=== PATIENT | female | born 1985 | race Caucasian/White ===

== ENCOUNTER 2025-06-05 09:12 | Outpatient (REF) | payer OTHER, SELFPAY ==
--- NOTE | ~2025-06-05 | XR_ITS ---
EXAMINATION: XR CERVICAL SPINE CLINICAL INFORMATION: Z98.1 - Arthrodesis status COMPARISON: None available. TECHNIQUE: 4 views of the cervical spine were obtained, including flexion and extension lateral views. FINDINGS: No significant scoliosis. There is a mild reversal of the normal lordosis centered at C5. The craniocervical junction and C1-2 articulation are intact and aligned with mild/moderate degenerative arthritis in the anterior joint. There is no fracture, compression deformity, or suspicious bone lesion. There has been prior anterior fusion and discectomy of C5-6 with disc prosthesis and oblique endplate screws. The hardware appears well seated without definite periprosthetic fracture or lucency. There is a 2 mm retrolisthesis of C5 on C6 on the neutral projection. This remains unchanged in flexion and extension without evidence of new or developing subluxation at any other level. There is mild degenerative disc change at C6-C7. The remainder of the disc spaces appear preserved. Normal facet alignment and appearance bilaterally. There is no prevertebral soft tissue abnormality. There are nonspecific submandibular calcifications bilaterally. Imaged lung apices are clear. XR/XR cervical spine 4V IMPRESSION: 1. Anterior fusion and discectomy at C5-6 without hardware complication identified. 2. There is no evidence of instability on flexion and extension views. 3. There is mild disc degeneration at C6-C7. Electronically signed by: Lionel aGmez MD 06/05/2025 10:05 AM [facility]
== END 2025-06-05 09:13 | disposition home or self-care (01) ==
LOC: HO.HOSX 09:12
PROVIDERS: Visit Provider Neurological Surgery
DX: S12.400D Unspecified displaced fracture of fifth cervical vertebra, subsequent encounter for fracture with routine healing (principal); Z98.1 Arthrodesis status; X58.XXXD Exposure to other specified factors, subsequent encounter
CPT/HCPCS: 72050

== ENCOUNTER 2025-06-05 09:12 | Outpatient (AMB) | payer OTHER, SELFPAY ==
[2025-06-05 09:27] VITALS: BMI 23.3
--- NOTE | 2025-06-05 09:27 | HO.SPINEOV ---
Vital Signs 06/05/25 09:27 Height 5 ft 5 in Weight 140 lb BMI 23.3 Intake Visit Reasons: cervical radiculopathy Intake Note: Ms. Davis is here today c/o right sided neck pain. 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 Allergies amoxicillin Allergy (Mild, Verified 06/05/25 09:28) Rash azithromycin Allergy (Mild, Verified 06/05/25 09:28) Rash Penicillins Allergy (Mild, Verified 06/05/25 09:28) Rash Sulfa (Sulfonamide Antibiotics) Allergy (Mild, Verified 06/05/25 09:28) Rash Physical Exam Vital Signs: BMI result Body Mass Index 23.3 Assessment & Plan Assessment & Plan (1) Status post cervical spinal fusion: Code(s): Z98.1 - Arthrodesis status Category: Surgical (2) Cervical pseudoarthrosis: Code(s): S12.9XXA - Fracture of neck, unspecified, initial encounter Category: Medical Plan Dear colleague Thank you for referring Mandi Davis to the office today with a chief complaint of chronic neck pain. HPI: This 39-year-old female who underwent an anterior cervical decompression and fusion C5-6 for neck pain. She states that the surgery gave her significant improvement for several months and then her symptoms returned worse than ever. In fact, now she is having debilitating neck pain that is constant. There is intermittent electric shocks down her right arm. Still works as a chart nerves. Her primary care office ordered a new MRI of the cervical spine, which was reviewed by her original surgeon Dr. Syed and she was told that there was nothing to be done. The following conservative treatment options were tried without success antiinflammatories, tylenol, physician guided home exercise plan, cortisone shots PMH: Hypertension, hyperlipidemia, depression, anxiety, chronic pain, lumbar diskectomy, lumbar fusion and cervical fusion Medications: Wellbutrin, Celexa, Adderall, amlodipine, OxyContin, losartan, colododine, trazodone, Zepbound, tizanidine Allergies: Sulfa drugs, amoxicillin, penicillin, azithromycin Social history: Nonsmoker. Physical Exam: Height 5'5 weight 140 lb. Patient is in distress due to pain. She is constantly moving her neck trying to get relief. Neurological exam is intact for motor sensation and reflexes. Radiological Studies: MRI of the cervical spine done at [facility] on 11/30/2024 shows status post C5-6 fusion. There is no residual nerve or spinal cord compression. I obtained an x-ray of the cervical spine with flexion-extension that shows a stand-alone implant at C5-6 with subsidence and questionable fusion. Impression/Plan: This patient is suffering from intractable cervical neck pain despite a cervical fusion surgery. Her history and imaging are suspicious for pseudoarthrosis. I would like to obtain a CT of the cervical spine. The patient will obtain images from intraoperatively and postoperatively to compare. Thank you for allowing me to participate in your patients care. total time spent was 50 minutes in counseling ,coordination of plan, personal review of imaging, surgical decision making and subsequent plan Mich Ardon MD, PhD Spine Fellowship Trained Neurosurgeon Director, [facility] Orders: Orders XR cervical spine 4V Today Z98.1 - Arthrodesis status CT cervical spine wo IV con Today S12.9XXA - Fracture of neck, unspecified, initial encounter, Z98.1 - Arthrodesis status Coding Level of Care Code New Pt Level 4 (47658) Diagnoses Status post cervical spinal fusion Z98.1 Cervical pseudoarthrosis S12.9XXA
== END 2025-06-05 10:09 | disposition home or self-care (01) ==
LOC: HO.HNS 09:13
PROVIDERS: Visit Provider Neurological Surgery
DX: Z98.1 Arthrodesis status (principal); S12.9XXA Fracture of neck, unspecified, initial encounter
CPT/HCPCS: 99204

== ENCOUNTER → 2025-06-05 09:43 | Outpatient (BNV) | payer OTHER, SELFPAY | PROVIDERS: Visit Provider Radiology Diagnostic Radiology | DX: M50.323 Other cervical disc degeneration at C6-C7 level (principal); Z98.1 Arthrodesis status | CPT/HCPCS: 72050 ==

== ENCOUNTER 2025-06-24 14:18 | Outpatient (AMB) | payer OTHER, SELFPAY ==
--- NOTE | 2025-06-24 14:37 | HO.SPINEOV ---
Intake Visit Reasons: CT follow up Intake Note: Ms. Davis is here today to F/u on the results to her CT. 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 Allergies amoxicillin Allergy (Mild, Verified 06/05/25 09:28) Rash azithromycin Allergy (Mild, Verified 06/05/25 09:28) Rash Penicillins Allergy (Mild, Verified 06/05/25 09:28) Rash Sulfa (Sulfonamide Antibiotics) Allergy (Mild, Verified 06/05/25 09:28) Rash Assessment & Plan Assessment & Plan (1) Cervical pseudoarthrosis: Code(s): S12.9XXA - Fracture of neck, unspecified, initial encounter Category: Medical (2) Status post cervical spinal fusion: Code(s): Z98.1 - Arthrodesis status Category: Medical Plan Dear colleague, On 06/24/2025, I saw for follow-up Mandi Davis to review CT of the cervical spine. As you know, she underwent an anterior diskectomy and fusion C5-6 at [facility]. Initially, she had improvement of her neck pain but over time she developed progressive neck pain. She came to see me for 2nd opinion. I obtained a CT of the cervical spine with the working diagnosis of pseudoarthrosis. The CT scan confirms that there was no fusion at C5-6 and lucency around the screws. In other words, this patient does have a pseudoarthrosis. I advised her to undergo a revision surgery C5-6 in an attempt to address her excruciating neck pain. We will remove the stand alone implant and replace it with a cage and anterior plate. I described the procedure expected outcome. This will be done in day surgery. I spent 30 minutes in his consult to review imaging and discussing plan of care. She is scheduled for 08/20/2025. Thank you for allowing me take care of your patient. Mich Ardon MD, PhD Spine Fellowship Trained Neurosurgeon Director, [facility] Coding Level of Care Code Est Pt Level 4 (22576) Diagnoses Cervical pseudoarthrosis S12.9XXA Status post cervical spinal fusion Z98.1
== END 2025-06-24 15:23 | disposition home or self-care (01) ==
LOC: HO.HNS 14:19
PROVIDERS: Visit Provider Neurological Surgery
DX: S12.9XXA Fracture of neck, unspecified, initial encounter (principal); Z98.1 Arthrodesis status
CPT/HCPCS: 99214